=== PATIENT | male | born 1950 | race Caucasian/White ===

== ENCOUNTER 2017-04-02 12:21 | Outpatient (CLI) | payer MEDICARE, OTHER ==
[2017-04-02 12:41] LABS: BASOPHILS % 0.6 (0.0-1.5); EOSINOPHILS % 1.2 % (0.0-6.8); MEAN CORPUSCULAR HEMOGLOBIN 30.4 pg (28.0-34.0); MEAN CORPUSCULAR VOLUME 89.1 fl (80.0-100.0); MONOCYTES % 6.7 % (0.0-11.0); NEUTROPHILS # 3.6 # k/uL (1.4-7.7)
[2017-04-02 13:11] LABS: eGFR (African) > 60; eGFR (Non-African) > 60
== END 2017-04-02 12:22 ==
LOC: LAB 12:21
PROVIDERS: ATTEND Internal Medicine Gastroenterology
DX: R94.5 Abnormal results of liver function studies (principal)
CPT/HCPCS: 36415; 80053; 85025

== ENCOUNTER 2017-11-04 09:12 | Outpatient (CLI) | payer MEDICARE, OTHER ==
[2017-11-04 12:00] LABS: eGFR (Non-African) > 60
[2017-11-04 22:21] LABS: BASO % 0.5 % (0.0-1.5); EOS % 1.3 % (0.0-6.8); LYMPH ABS # 2.24 thou/uL (0.60-4.00); MCH. 29.4 pg (28.0-34.0); MCV 87.7 fL (80.0-100.0); MONOCYTE % 8.2 % (0.0-11.0); MONOCYTE ABS # 0.53 thou/uL (0.00-0.90); PLATELET COUNT 227 thou/uL (130-400)
== END 2017-11-04 09:20 ==
LOC: LAB 09:12
PROVIDERS: ATTEND Internal Medicine Gastroenterology
DX: R94.5 Abnormal results of liver function studies (principal); E88.1 Lipodystrophy, not elsewhere classified
CPT/HCPCS: 36415; 80053; 85025